=== PATIENT | male | born 1965 | race Asian ===

== ENCOUNTER 2020-04-27 04:31 | Inpatient (IN) | payer MEDICAID ==
[~2020-04-27] VITALS: Ht 170.2 cm; Wt 68.0 kg
[2020-04-27 05:24] LABS: BASOPHILS % (AUTO) 0.4 % (0-1); EOSINOPHILS # (AUTO) 0.1 X10'3 (0-0.9); EOSINOPHILS % (AUTO) 1.3 % (0-6); HEMATOCRIT 44.5 % (42.0-52.0); HEMOGLOBIN 14.9 g/dl (14.0-17.9); LYMPHOCYTES # (AUTO) 2.3 X10'3 (1.1-4.8); LYMPHOCYTES % (AUTO) 26.1 % (21-51); MEAN CORPUSCULAR HEMOGLOBIN 31.2 PG (27.0-31.0); MEAN CORPUSCULAR HGB CONC 33.6 g/dL (33.0-36.5); MEAN CORPUSCULAR VOLUME 92.7 FL (78-98); MEAN PLATELET VOLUME 9.1 FL (7.4-10.4); MONOCYTES # (AUTO) 0.7 X10'3 (0-0.9); MONOCYTES % (AUTO) 8.1 % (2-12); NEUTROPHILS # (AUTO) 5.6 X10'3 (1.8-7.7); NEUTROPHILS % (AUTO) 64.1 % (42-75); PLATELET COUNT 230 X10'3 (140-440); RED BLOOD COUNT 4.79 X10'6 (4.70-6.10); RED CELL DISTRIBUTION WIDTH 12.3 % (11.5-14.5); WHITE BLOOD COUNT 8.8 X10'3 (4.5-11.0)
[2020-04-27 05:26] LABS: CLARITY,URINE CLEAR (Clear); GLUCOSE, URINE NEGATIVE (Neg); KETONES,URINE NEGATIVE (Neg); LEUKOCYTE ESTERASE ,URINE TRACE (Neg); NITRITES, URINE NEGATIVE (Neg); OCCULT BLOOD,URINE NEGATIVE (Neg); PROTEIN,URINE TRACE mg/dl (Neg)
[2020-04-27 05:28] LABS: COLOR,URINE AMBER (Yellow); UA COLLECTION TYPE CLN CATCH MIDSTREAM
[2020-04-27 05:34] LABS: ALANINE AMINOTRANSFERASE 84 U/L (12-78); ALBUMIN 3.5 G/DL (3.4-5.0); ALKALINE PHOSPHATASE 164 IU/L (46-116); ANION GAP 8 (8-16); ASPARTATE AMINO TRANSFERASE 62 U/L (10-37); BILIRUBIN,TOTAL 1.2 MG/DL (0.1-1.0); BLOOD UREA NITROGEN 14 MG/DL (7-18); BUN/CREATININE RATIO 10.3 (5.4-32.0); CALCIUM 8.6 MG/DL (8.5-10.1); CHLORIDE 105 MMOL/L (99-107); CREATININE 1.36 MG/DL (0.60-1.10); GLUCOSE 107 MG/DL (70-104); POTASSIUM 3.8 MMOL/L (3.5-5.1); SODIUM 142 MMOL/L (135-145); TOTAL CARBON DIOXIDE 28.9 MMOL/L (24-32); TOTAL PROTEIN 7.1 G/DL (6.4-8.2); eGFR 55 ML/MIN
[2020-04-27] MEDS ORDERED: normal saline 1000ml 1,000 ML IV ONE (05:35)
[2020-04-27] MEDS ORDERED: normal saline 1000ML IV soln IVB ONE (05:35)
[2020-04-27 05:37] LABS: LIPASE 98 U/L (73-393); TROPONIN I 0.06 NG/ML (0.0-0.05)
[2020-04-27 05:42] LABS: BACTERIA,URINE FEW /HPF (Neg); MUCUS STRANDS FEW /LPF (Neg); RBC,URINE NONE SEEN /HPF (0-2); SQUAMOUS EPITHELIAL CELL,UR NONE SEEN /LPF (FEW); WBC,URINE 0-4 /HPF (0-4)
[2020-04-27 05:43] LABS: COARSE GRANULAR CAST 0-3 /LPF (NEGATIVE)
[2020-04-27] MEDS ORDERED: pantoprazole 40 MG vial IV ONE (05:45)
[2020-04-27 06:00] LABS: MAGNESIUM 2.2 MG/DL (1.5-2.4)
[2020-04-27] MEDS ORDERED: aspirin 81mg tab.chew PO ONE (06:00)
[2020-04-27] MEDS ORDERED: iohexol 350MG/ML 100ml bottle IV ONE (06:01)
[2020-04-27 06:02] LABS: PARTIAL THROMBOPLASTIN TIME 27 SECONDS (22-32)
[2020-04-27 06:04] LABS: ETHANOL < 0.010 GM/DL (0.0-0.010)
[2020-04-27] MEDS ORDERED: levoFLOXACIN-Levaquin 750MG/D5 150 ML IV ONE (06:20)
[2020-04-27] MEDS ORDERED: CefTRIAXone 2gm/D5W 50ml BAG 50 ML IV ONE (06:20)
[2020-04-27 06:54] LABS: LACTATE DEHYDROGENASE 313 U/L (85-227)
[2020-04-27] MEDS: morphine 2 MG/ML inj. syringe IV PRN ×3 (07:35→09:53)
[2020-04-27] MEDS ORDERED: potassium Cl 20 mEq SR tablet PO PRN ×2 (08:15)
[2020-04-27] MEDS ORDERED: magnesium 4gm in 100ml NS 100 ML IV PRN (08:15)
[2020-04-27] MEDS ORDERED: magnesium Cl slow-release 64mg tablet PO PRN (08:15)
[2020-04-27] MEDS: normal saline 1000ml 1,000 ML IV SCH ×2 (08:15→12:39)
[2020-04-27] MEDS ORDERED: acetaminophen 325mg tablet PO PRN (08:15)
[2020-04-27] MEDS ORDERED: potassium Cl 40MEQ/1/2NS 520ml 520 ML IV PRN ×2 (08:15)
[2020-04-27] MEDS ORDERED: magnesium 2GM in 50ml NS 50 ML IV PRN (08:15)
[2020-04-27] MEDS ORDERED: magnesium hydroxide 30ml (MOM) UD suspension PO PRN (08:15)
[2020-04-27] MEDS ORDERED: heparin 25,000 UNIT/250ml bag 250 ML IV SCH (09:30)
[2020-04-27] MEDS ORDERED: heparin 10,000 units/1 ML INJ IV PRN (09:30)
[2020-04-27] MEDS ORDERED: heparin 10,000 units/1 ML INJ IV ONE (09:30)
--- NOTE | 2020-04-27 10:03 | NUR ---
US ETA 1029
[2020-04-27] MEDS: piperacillin/tazo 3.375gm/50ml 50 ML IV SCH ×2 (10:13→19:20)
[2020-04-27] MEDS: ondansetron/PF 4mg/2ml inj IV PRN ×2 (10:16→17:29)
[2020-04-27] MEDS ORDERED: SIME125C43 PO (10:37)
[2020-04-27] MEDS ORDERED: NO HOME MEDS (10:55)
[2020-04-27] MEDS: pantoprazole 40MG/NS 100ML BAG 100 ML IV SCH ×3 (11:55→22:10)
[2020-04-27 12:09] LABS: URINE AMPHETAMINE SCREEN POSITIVE (Neg); URINE BARBITUATE SCREEN NEGATIVE (Neg); URINE BENZODIAZEPINES SCREEN NEGATIVE (Neg); URINE CANNABINOID SCREEN NEGATIVE (Neg); URINE COCAINE SCREEN NEGATIVE (Neg); URINE METHADONE SCREEN NEGATIVE (Neg); URINE OPIATE SCREEN NEGATIVE (Neg); URINE PHENCYCLIDINE SCREEN NEGATIVE (Neg)
--- NOTE | 2020-04-27 16:37 | NUR ---
Attempted to phone report, receiving RN is not available at this time but will phone back with report shortly.
--- NOTE | 2020-04-27 17:00 | NUR ---
I have received report from Praful [facility] and had the opportunity to ask questions.
[2020-04-27] MEDS ORDERED: sincalide inj 1.4 MCG in normal saline 100ml IV soln 100 ML IV PRN (17:25)
--- NOTE | 2020-04-27 17:30 | NUR ---
Pt arrived to PCU via w/c, to room 3025B. NS @100 running to LFA IV without difficulty. Pt had c/o of nausea and was medicated with Zofran in ER approx 1725. 2L O2 per NC. Tele placed on pt. Pt oriented to room. No c/o at this time.
[2020-04-27 17:45] VITALS: BP 138/105
--- NOTE | 2020-04-27 18:00 | NUR ---
Patient in room PCU 3018B. I have received report from Antonia DAMON and had the opportunity to ask questions and assume patient care.
--- NOTE | 2020-04-27 18:15 | NUR ---
Problems reprioritized. Patient report given, questions answered & plan of care reviewed with Beatriz DAMON.
--- NOTE | 2020-04-27 18:15 | NUR ---
Problems reprioritized. Patient report given, questions answered & plan of care reviewed with Beatriz DAMON.
[2020-04-27] MEDS: K and/or MAG REPLACEMENT MC SCH (19:18)
[2020-04-27] MEDS: mag hydrox/Alum hydrox/simeth 30ml oral suspension PO PRN (19:33)
[2020-04-27] MEDS ORDERED: acetaminophen 325mg tablet PO ONE (19:55)
--- NOTE | 2020-04-27 19:55 | NUR ---
Pt. c/o headache and abd pain. No pain meds ordered. Paged Dr. Jordan and received one time order for acetaminophen.
[2020-04-27] MEDS ORDERED: enoxaparin 40mg/0.4ml syringe SQ SCH (20:00)
[2020-04-27 22:00] VITALS: BP 141/107
[2020-04-28] VITALS (7 sets, daily range): BP systolic 109–148; BP diastolic 78–114
[2020-04-28] MEDS: piperacillin/tazo 3.375gm/50ml 50 ML IV SCH ×3 (00:58→17:00)
[2020-04-28] MEDS: pantoprazole 40MG/NS 100ML BAG 100 ML IV SCH ×4 (01:00→16:00)
[2020-04-28] MEDS: normal saline 1000ml 1,000 ML IV SCH ×2 (03:45→14:50)
--- NOTE | 2020-04-28 06:18 | NUR ---
Problems reprioritized. Patient report given, questions answered & plan of care reviewed with Bere DAMON.
[2020-04-28 07:51] LABS: BASOPHILS % (AUTO) 0.2 % (0-1); EOSINOPHILS % (AUTO) 0.1 % (0-6); HEMATOCRIT 42.2 % (42.0-52.0); HEMOGLOBIN 14.2 g/dl (14.0-17.9); LYMPHOCYTES # (AUTO) 3.1 X10'3 (1.1-4.8); LYMPHOCYTES % (AUTO) 26.1 % (21-51); MEAN CORPUSCULAR HGB CONC 33.6 g/dL (33.0-36.5); MEAN CORPUSCULAR VOLUME 95.5 FL (78-98); MONOCYTES # (AUTO) 1.3 X10'3 (0-0.9); MONOCYTES % (AUTO) 10.9 % (2-12); NEUTROPHILS # (AUTO) 7.4 X10'3 (1.8-7.7); NEUTROPHILS % (AUTO) 62.7 % (42-75); PLATELET COUNT 237 X10'3 (140-440); RED BLOOD COUNT 4.42 X10'6 (4.70-6.10); RED CELL DISTRIBUTION WIDTH 12.4 % (11.5-14.5); WHITE BLOOD COUNT 11.8 X10'3 (4.5-11.0)
[2020-04-28] MEDS: K and/or MAG REPLACEMENT MC SCH ×2 (08:00→20:00)
[2020-04-28 08:13] LABS: ALANINE AMINOTRANSFERASE 86 U/L (12-78); ALBUMIN/GLOBULIN RATIO 0.9 (1.1-1.5); ALKALINE PHOSPHATASE 138 IU/L (46-116); ANION GAP 11 (8-16); ASPARTATE AMINO TRANSFERASE 55 U/L (10-37); BLOOD UREA NITROGEN 22 MG/DL (7-18); BUN/CREATININE RATIO 13.8 (5.4-32.0); CALCIUM 8.1 MG/DL (8.5-10.1); CHLORIDE 107 MMOL/L (99-107); GLUCOSE 119 MG/DL (70-104); MAGNESIUM 2.8 MG/DL (1.5-2.4); POTASSIUM 4.3 MMOL/L (3.5-5.1); SODIUM 140 MMOL/L (135-145); TOTAL CARBON DIOXIDE 22.1 MMOL/L (24-32); TOTAL PROTEIN 6.5 G/DL (6.4-8.2); eGFR 45 ML/MIN
[2020-04-28] MEDS: enoxaparin 30mg/0.3ml syringe SUBCUT SCH (10:01)
[2020-04-28] MEDS: lisinopril 5mg tablet PO SCH (13:33)
[2020-04-28] MEDS: mag hydrox/Alum hydrox/simeth 30ml oral suspension PO PRN ×2 (14:53→21:41)
--- NOTE | 2020-04-28 18:54 | NUR ---
Problems reprioritized. Patient report given, questions answered & plan of care reviewed with MARISOL MELO.
[2020-04-28] MEDS ORDERED: enoxaparin 30mg/0.3ml syringe SUBCUT SCH (20:00)
[2020-04-28] MEDS: carvedilol 6.25mg tablet PO SCH (20:58)
[2020-04-29] MEDS: normal saline 1000ml 1,000 ML IV SCH ×3 (00:47→20:15)
[2020-04-29 02:00] VITALS: BP 111/90
--- NOTE | 2020-04-29 06:37 | NUR ---
Problems reprioritized. Patient report given, questions answered & plan of care reviewed with MARISOL Casper.
[2020-04-29 07:00] VITALS: BP 130/98
--- NOTE | 2020-04-29 07:02 | NUR ---
Patient in room PCU 3025. I have received report from Gladys DAMON and had the opportunity to ask questions and assume patient care.
[2020-04-29 07:12] LABS: BASOPHILS % (AUTO) 0.3 % (0-1); EOSINOPHILS # (AUTO) 0.1 X10'3 (0-0.9); HEMATOCRIT 41.4 % (42.0-52.0); HEMOGLOBIN 13.8 g/dl (14.0-17.9); LYMPHOCYTES # (AUTO) 2.6 X10'3 (1.1-4.8); LYMPHOCYTES % (AUTO) 22.9 % (21-51); MEAN CORPUSCULAR HEMOGLOBIN 31.4 PG (27.0-31.0); MEAN CORPUSCULAR HGB CONC 33.4 g/dL (33.0-36.5); MEAN CORPUSCULAR VOLUME 94.1 FL (78-98); MONOCYTES % (AUTO) 9.1 % (2-12); NEUTROPHILS # (AUTO) 7.6 X10'3 (1.8-7.7); NEUTROPHILS % (AUTO) 66.7 % (42-75); PLATELET COUNT 205 X10'3 (140-440); RED CELL DISTRIBUTION WIDTH 12.4 % (11.5-14.5); WHITE BLOOD COUNT 11.3 X10'3 (4.5-11.0)
[2020-04-29 07:27] LABS: ALANINE AMINOTRANSFERASE 134 U/L (12-78); ALBUMIN 2.9 G/DL (3.4-5.0); ALBUMIN/GLOBULIN RATIO 0.9 (1.1-1.5); ALKALINE PHOSPHATASE 150 IU/L (46-116); ANION GAP 6 (8-16); ASPARTATE AMINO TRANSFERASE 93 U/L (10-37); BLOOD UREA NITROGEN 26 MG/DL (7-18); BUN/CREATININE RATIO 17.1 (5.4-32.0); CHLORIDE 108 MMOL/L (99-107); CREATININE 1.52 MG/DL (0.60-1.10); GLUCOSE 110 MG/DL (70-104); MAGNESIUM 2.5 MG/DL (1.5-2.4); POTASSIUM 4.2 MMOL/L (3.5-5.1); SODIUM 139 MMOL/L (135-145); TOTAL CARBON DIOXIDE 25.5 MMOL/L (24-32); TOTAL PROTEIN 6.2 G/DL (6.4-8.2); eGFR 48 ML/MIN
[2020-04-29] MEDS: pantoprazole 40mg Tablet.DR PO SCH (07:37)
[2020-04-29] MEDS: lisinopril 5mg tablet PO SCH (07:39)
[2020-04-29] MEDS: enoxaparin 30mg/0.3ml syringe SUBCUT SCH (07:39)
[2020-04-29] MEDS: carvedilol 6.25mg tablet PO SCH ×2 (07:39→22:03)
[2020-04-29] MEDS: K and/or MAG REPLACEMENT MC SCH ×2 (07:40→20:00)
[2020-04-29] MEDS ORDERED: furosemide 20MG tablet PO SCH (08:00)
[2020-04-29] MEDS ORDERED: furosemide 20 MG/2 ML vial IV SCH (09:30)
[2020-04-29] MEDS ORDERED: furosemide 10 MG/1 ML 10ml inj IV ONE (10:50)
[2020-04-29 11:00] VITALS: BP 125/98
[2020-04-29] MEDS: morphine 2 MG/ML inj. syringe IV PRN ×2 (12:22→19:28)
[2020-04-29 15:00] VITALS: BP 121/95
[2020-04-29 18:00] VITALS: BP 154/111
--- NOTE | 2020-04-29 18:36 | NUR ---
Problems reprioritized. Patient report given, questions answered & plan of care reviewed with Beatriz DAMON.
[2020-04-29 22:00] VITALS: BP 137/111
[2020-04-29] MEDS: furosemide 20 MG/2 ML vial IV SCH (22:03)
[2020-04-30 02:00] VITALS: BP 133/79
[2020-04-30] MEDS: normal saline 1000ml 1,000 ML IV SCH (05:54)
[2020-04-30 06:14] LABS: HEMOGLOBIN 13.7 g/dl (14.0-17.9); MEAN CORPUSCULAR HEMOGLOBIN 32.1 PG (27.0-31.0); RED CELL DISTRIBUTION WIDTH 12.4 % (11.5-14.5); WHITE BLOOD COUNT 9.9 X10'3 (4.5-11.0)
[2020-04-30 06:18] LABS: BASOPHILS % (AUTO) 0.3 % (0-1); EOSINOPHILS # (AUTO) 0.3 X10'3 (0-0.9); EOSINOPHILS % (AUTO) 3.1 % (0-6); HEMATOCRIT 40.1 % (42.0-52.0); LYMPHOCYTES # (AUTO) 2.9 X10'3 (1.1-4.8); LYMPHOCYTES % (AUTO) 29.3 % (21-51); MEAN CORPUSCULAR HGB CONC 34.1 g/dL (33.0-36.5); MEAN CORPUSCULAR VOLUME 94.1 FL (78-98); MEAN PLATELET VOLUME 8.6 FL (7.4-10.4); MONOCYTES % (AUTO) 10.1 % (2-12); NEUTROPHILS # (AUTO) 5.6 X10'3 (1.8-7.7); NEUTROPHILS % (AUTO) 57.2 % (42-75); PLATELET COUNT 185 X10'3 (140-440); RED BLOOD COUNT 4.26 X10'6 (4.70-6.10)
--- NOTE | 2020-04-30 06:34 | NUR ---
Patient in room PCU 3025. I have received report from Beatriz DAMON and had the opportunity to ask questions and assume patient care.
[2020-04-30 06:38] LABS: ALANINE AMINOTRANSFERASE 157 U/L (12-78); ALBUMIN 2.9 G/DL (3.4-5.0); ALBUMIN/GLOBULIN RATIO 0.9 (1.1-1.5); ALKALINE PHOSPHATASE 159 IU/L (46-116); ANION GAP 6 (8-16); ASPARTATE AMINO TRANSFERASE 85 U/L (10-37); BILIRUBIN,TOTAL 0.7 MG/DL (0.1-1.0); BLOOD UREA NITROGEN 25 MG/DL (7-18); CALCIUM 8.1 MG/DL (8.5-10.1); CHLORIDE 106 MMOL/L (99-107); CREATININE 1.39 MG/DL (0.60-1.10); GLUCOSE 93 MG/DL (70-104); MAGNESIUM 2.1 MG/DL (1.5-2.4); POTASSIUM 3.6 MMOL/L (3.5-5.1); SODIUM 142 MMOL/L (135-145); TOTAL CARBON DIOXIDE 29.9 MMOL/L (24-32); TOTAL PROTEIN 6.1 G/DL (6.4-8.2); eGFR 53 ML/MIN
[2020-04-30 07:00] VITALS: BP 138/100
[2020-04-30] MEDS: K and/or MAG REPLACEMENT MC SCH ×2 (08:00→20:00)
[2020-04-30 08:01] LABS: PLATELET ESTIMATE NORMAL; TOTAL CELLS COUNTED 100
[2020-04-30] MEDS: furosemide 20 MG/2 ML vial IV SCH ×2 (08:06→20:47)
[2020-04-30] MEDS: carvedilol 6.25mg tablet PO SCH ×2 (08:06→20:47)
[2020-04-30] MEDS: spironolactone 25 MG tablet PO SCH (08:06)
[2020-04-30] MEDS: lisinopril 5mg tablet PO SCH (08:06)
[2020-04-30] MEDS: enoxaparin 30mg/0.3ml syringe SUBCUT SCH (08:07)
[2020-04-30] MEDS: morphine 2 MG/ML inj. syringe IV PRN (08:07)
[2020-04-30] MEDS: pantoprazole 40mg Tablet.DR PO SCH (08:07)
[2020-04-30 11:00] VITALS: BP 127/88
--- NOTE | 2020-04-30 17:06 | NUR ---
Page sent to Dr. Bills: PAGER ID: [phone] MESSAGE: [phone] Lelo: [employer] rep is coming to fit him at 184, . Thanks, Pennie
[2020-04-30 18:00] VITALS: BP 138/103
--- NOTE | 2020-04-30 18:31 | NUR ---
Problems reprioritized. Patient report given, questions answered & plan of care reviewed with Asya DAMON.
--- NOTE | 2020-04-30 18:50 | NUR ---
Patient in room PCU 3025. I have received report from Pennie DAMON and had the opportunity to ask questions and assume patient care.
--- NOTE | 2020-04-30 20:24 | NUR ---
Change of assignment. Report given to Teresita DAMON. [employer] rep in room with patient explaining the life vest monitor. Bed low and side rails x 2 up.
--- NOTE | 2020-04-30 20:25 | NUR ---
Patient in room PCU 3025. I have received report from MARISOL Sky and had the opportunity to ask questions and assume patient care.
[2020-05-01 02:00] VITALS: BP 133/92
[2020-05-01 05:58] LABS: BASOPHILS % (AUTO) 0.4 % (0-1); EOSINOPHILS # (AUTO) 0.3 X10'3 (0-0.9); EOSINOPHILS % (AUTO) 2.7 % (0-6); HEMATOCRIT 41.6 % (42.0-52.0); HEMOGLOBIN 14.1 g/dl (14.0-17.9); LYMPHOCYTES % (AUTO) 30.8 % (21-51); MEAN CORPUSCULAR HEMOGLOBIN 31.5 PG (27.0-31.0); MEAN CORPUSCULAR HGB CONC 33.8 g/dL (33.0-36.5); MEAN CORPUSCULAR VOLUME 93.1 FL (78-98); MEAN PLATELET VOLUME 8.7 FL (7.4-10.4); MONOCYTES # (AUTO) 0.9 X10'3 (0-0.9); MONOCYTES % (AUTO) 9.2 % (2-12); NEUTROPHILS # (AUTO) 5.5 X10'3 (1.8-7.7); NEUTROPHILS % (AUTO) 56.9 % (42-75); PLATELET COUNT 208 X10'3 (140-440); RED BLOOD COUNT 4.47 X10'6 (4.70-6.10); RED CELL DISTRIBUTION WIDTH 12.4 % (11.5-14.5); WHITE BLOOD COUNT 9.7 X10'3 (4.5-11.0)
--- NOTE | 2020-05-01 06:10 | NUR ---
Problems reprioritized. Patient report given, questions answered & plan of care reviewed with MARISOL Casper.
[2020-05-01 06:18] LABS: ALANINE AMINOTRANSFERASE 166 U/L (12-78); ALBUMIN 3.1 G/DL (3.4-5.0); ALBUMIN/GLOBULIN RATIO 0.8 (1.1-1.5); ALKALINE PHOSPHATASE 161 IU/L (46-116); ANION GAP 8 (8-16); ASPARTATE AMINO TRANSFERASE 74 U/L (10-37); BLOOD UREA NITROGEN 21 MG/DL (7-18); BUN/CREATININE RATIO 16.5 (5.4-32.0); CALCIUM 8.5 MG/DL (8.5-10.1); CHLORIDE 103 MMOL/L (99-107); CREATININE 1.27 MG/DL (0.60-1.10); GLUCOSE 92 MG/DL (70-104); MAGNESIUM 1.9 MG/DL (1.5-2.4); POTASSIUM 3.4 MMOL/L (3.5-5.1); SODIUM 139 MMOL/L (135-145); TOTAL CARBON DIOXIDE 28.3 MMOL/L (24-32); TOTAL PROTEIN 6.8 G/DL (6.4-8.2); eGFR 59 ML/MIN
--- NOTE | 2020-05-01 06:56 | NUR ---
Patient in room PCU 3025. I have received report from Teresita DAMON and had the opportunity to ask questions and assume patient care.
[2020-05-01 07:00] VITALS: BP 130/94
[2020-05-01] MEDS: pantoprazole 40mg Tablet.DR PO SCH (07:30)
[2020-05-01] MEDS: K and/or MAG REPLACEMENT MC SCH (08:00)
[2020-05-01] MEDS ORDERED: carVEDilol 12.5mg tablet PO SCH (08:00)
[2020-05-01] MEDS: enoxaparin 30mg/0.3ml syringe SUBCUT SCH (08:00)
[2020-05-01] MEDS: lisinopril 5mg tablet PO SCH (08:00)
[2020-05-01] MEDS: furosemide 20 MG/2 ML vial IV SCH (08:00)
[2020-05-01] MEDS: spironolactone 25 MG tablet PO SCH (08:30)
[2020-05-01] MEDS ORDERED: potassium Cl 20 mEq SR tablet PO ONE (09:05)
[2020-05-01] MEDS ORDERED: LISI-642 PO (09:46)
[2020-05-01] MEDS ORDERED: FURO40TA4 PO (09:46)
[2020-05-01] MEDS ORDERED: PANT40TA54 PO (09:46)
[2020-05-01] MEDS ORDERED: CARV-50 PO (09:46)
--- NOTE | 2020-05-01 10:24 | NUR ---
Page sent to Dr. Bills: PAGER ID: [phone] MESSAGE: [phone] Porter Lind: Trying to print out discharge papers, its saying there is a drug interaction between spironolactone and lisinopril. Would you mind checking it out? Thank you, Pennie [phone]
[2020-05-01 11:00] VITALS: BP 109/79
[2020-05-01] MEDS ORDERED: SPIR25TA PO (11:30)
--- NOTE | 2020-05-01 13:30 | NUR ---
Patient stable for discharge per MD order. All discharge education and information reviewed with patient before signing necessary paperwork. Iv discontinued with catheter in tact, monitor tech removed and returned, Leeanna acunat on patient, all ewuipment packed up and sent with patient as well as personal belongings. New Rx sent to patient; Addendum: 05/01/20 at 1513 by Pennie Hawthorne RN New Rx sent to patient's preferred pharmacy of [facility] in [place]. Patient picked up by daughter and in private vehicle.
== END 2020-05-01 13:17 | disposition home or self-care (01) | DRG 194 ==
LOC: ER 04:32 → ED HOLD 08:12 → EDBEDREQ 16:08 → PCU 3S 17:37
PROVIDERS: ADMIT Family Medicine; ATTEND Family Medicine
PROC: B32T1ZZ Computerized Tomography (CT Scan) of Left Pulmonary Artery using Low Osmolar Contrast (ICD-10-PCS; principal; 2020-04-27)
PROC: B3201ZZ Computerized Tomography (CT Scan) of Thoracic Aorta using Low Osmolar Contrast (ICD-10-PCS; 2020-04-27)
PROC: B32S1ZZ Computerized Tomography (CT Scan) of Right Pulmonary Artery using Low Osmolar Contrast (ICD-10-PCS; 2020-04-27)
DX: I11.0 Hypertensive heart disease with heart failure (principal); F15.90 Other stimulant use, unspecified, uncomplicated; I21.A1 Myocardial infarction type 2; I50.23 Acute on chronic systolic (congestive) heart failure; I42.7 Cardiomyopathy due to drug and external agent; T43.625A Adverse effect of amphetamines, initial encounter; Y92.89 Other specified places as the place of occurrence of the external cause; N17.9 Acute kidney failure, unspecified; K21.9 Gastro-esophageal reflux disease without esophagitis; F17.200 Nicotine dependence, unspecified, uncomplicated; F10.10 Alcohol abuse, uncomplicated; Y90.9 Presence of alcohol in blood, level not specified; Z20.828 Contact with and (suspected) exposure to other viral communicable diseases; K76.1 Chronic passive congestion of liver; I27.20 Pulmonary hypertension, unspecified; G89.29 Other chronic pain; M54.5 Low back pain; Z71.6 Tobacco abuse counseling; Z79.899 Other long term (current) drug therapy
CPT/HCPCS: 36415; 71275; 74175; 76700; 78227; 80053; 80305; 80320; 81001; 83605; 83615; 83690; 83735; 83880; 84145; 84484; 85007; 85025; 85384; 85610; 85730; 86140; 87040; 87081; 87088; 87635; 93005; 93306; 93308; 96374; 97161; 97530; 99285; A9537; C9113; C9803; G0378; J0696; J1644; J1650; J1940; J1956; J2270; J2405; J2543; J2805; J7030; Q9967